=== PATIENT | male | born 1995 | race Caucasian/White ===

== ENCOUNTER 2018-06-12 21:40 | Emergency (ER) | payer MEDICAID ==
[~2018-06-12] VITALS: Ht 172.7 cm; Wt 72.3 kg
[2018-06-12 22:24] VITALS: Ht 172.7 cm; Wt 72.3 kg
[2018-06-13] MEDS ORDERED: SOD CHLORIDE 0.9% 500 ML IV STA (00:08)
[2018-06-13] MEDS ORDERED: HYDROmorphONE 1 MG/ML SYG IV STA (03:36)
--- NOTE | 2018-06-13 04:58 | ERD ---
ER Documentation Chief Complaint Chief Complaint GOT OUT OF BED, PASSED OUT, FELL, HIT RIGHT SIDE OF FACE HPI This is a 21-year-old male got out of bed too quickly said he felt lightheaded fell over and hit his head. He said he passed out after he fell. Complains of eye pain especially around the eyes and some nasal pain. Denies any focal neurologic complaints. Denies any chest pain or palpitations. ROS All systems reviewed and are negative except as per history of present illness. Medications Home Meds No Active Prescriptions or Reported Meds Allergies Allergies: Coded Allergies: No Known Allergy (Unverified , 06/13/18) PMhx/Soc Medical and Surgical Hx: pt denies Medical Hx, pt denies Surgical Hx History of Surgery: No Anesthesia Reaction: No Hx Neurological Disorder: No Hx Respiratory Disorders: No Hx Cardiac Disorders: No Hx Psychiatric Problems: No Hx Miscellaneous Medical Probl: No Hx Alcohol Use: No Hx Substance Use: No Hx Tobacco Use: No Smoking Status: Never smoker Physical Exam Vitals Vital Signs Date Temp Pulse Resp B/P (MAP) Pulse Ox O2 O2 Flow FiO2 Time Delivery Rate 06/13/18 72 18 133/80 98 Room Air 03:34 (97) 06/13/18 16 136/81 98 Room Air 02:05 (99) 06/13/18 72 18 145/77 100 Room Air 00:05 (99) 06/12/18 99.6 75 16 139/83 100 22:24 (101) Physical Exam Const: No acute distress Head: Periorbital ecchymosis along with some ecchymosis near the nasal bridge on the right Eyes: Normal Conjunctiva ENT: Normal External Ears, Nose and Mouth. Neck: Full range of motion. No meningismus. Resp: Clear to auscultation bilaterally Cardio: Regular rate and rhythm, no murmurs Abd: Soft, non tender, non distended. Normal bowel sounds Skin: No petechiae or rashes Back: No midline or flank tenderness Ext: No cyanosis, or edema Neur: Awake and alert Psych: Normal Mood and Affect Result Diagram: 06/13/18 0029 06/13/18 0029 Results 24 hrs Laboratory Tests Test 06/13/18 00:29 White Blood Count 16.4 10^3/ul Red Blood Count 5.73 10^6/ul Hemoglobin 15.9 g/dl Hematocrit 46.7 % Mean Corpuscular Volume 81.5 fl Mean Corpuscular Hemoglobin 27.7 pg Mean Corpuscular Hemoglobin Concent 34.0 g/dl Red Cell Distribution Width 12.9 % Platelet Count 335 10^3/UL Mean Platelet Volume 8.7 fl Immature Granulocytes % 0.600 % Neutrophils % 87.8 % Lymphocytes % 8.1 % Monocytes % 3.2 % Eosinophils % 0.1 % Basophils % 0.2 % Nucleated Red Blood Cells % 0.0 /100WBC Immature Granulocytes # 0.100 10^3/ul Neutrophils # 14.4 10^3/ul Lymphocytes # 1.3 10^3/ul Monocytes # 0.5 10^3/ul Eosinophils # 0.0 10^3/ul Basophils # 0.0 10^3/ul Nucleated Red Blood Cells # 0.0 10^3/ul Sodium Level 142 mmol/L Potassium Level 4.4 mmol/L Chloride Level 100 mmol/L Carbon Dioxide Level 27 mmol/L Anion Gap 15 Blood Urea Nitrogen 13 mg/dl Creatinine 0.83 mg/dl Est Glomerular Filtrat Rate mL/min > 60 mL/min Glucose Level 136 mg/dl Calcium Level 10.3 mg/dl Troponin I < 0.012 ng/ml Current Medications Medications Dose Sig/Corey Start Time Status Last (Trade) Ordered Route PRN Stop Time Admin Dose Reason Admin Sodium 500 ml @ Q1H STAT 06/13/18 DC 06/13/18 Chloride 500 mls/hr IV 00:08 00:25 06/13/18 01:07 1 mg ONCE STAT 06/13/18 DC 06/13/18 Hydromorphone IV 03:36 03:41 HCl 06/13/18 03:37 (Dilaudid) Procedures/MDM EKG: Rate/Rhythm: [Normal Sinus Rhythm] QRS, ST, T-waves: [No changes consistent w/ acute ischemia] Impression: [No evidence of ischemia or arrhythmia] Chest X-ray 1V Interpreted by me: Soft Tissue: No acute abnormalities Bones: No acute abnormalities Mediastinum/Cardiac Silhouette/Lungs: CT of the head and orbits was maxillary fracture with hemorrhage along with inferior medial orbital fractures. Medical decision makin-year-old with multiple orbital injuries, maxillary fracture and hemorrhage, patient will be needed to be transferred for higher level of care. Currently pending placement. No evidence of extraocular muscle entrapment on serial exams here in the emergency department. Critical Care: Time: 35 minutes, independent of any separately billable procedural time Treatments/Evaluations: Close monitoring and treatment of unstable vital signs, cardiorespiratory, and neurologic status, while maintaining tight balance of fluid, respiratory, and cardiac interventions. Departure Diagnosis: Primary Impression: Syncope Syncope type: unspecified Qualified Codes: R55 - Syncope and collapse Additional Impressions: Orbital fracture Encounter type: initial encounter Fracture type: closed Qualified Codes: S02.80XA - Fracture of other specified skull and facial bones, unspecified side, initial encounter for closed fracture Maxillary sinus fracture Encounter type: initial encounter Fracture type: closed Qualified Codes: S02.401A - Maxillary fracture, unspecified side, initial encounter for closed fracture Condition: Serious MILI FRITZ Jun 13, 2018 04:58
[2018-06-13 08:30] VITALS: BP 138/87; PULSE 65; RESP 15
== END 2018-06-13 08:38 | disposition short-term general hospital (02) ==
LOC: E/R 21:40
DX: R55 Syncope and collapse (principal); S02.401A Maxillary fracture, unspecified side, initial encounter for closed fracture; S02.31XA Fracture of orbital floor, right side, initial encounter for closed fracture; W01.198A Fall on same level from slipping, tripping and stumbling with subsequent striking against other object, initial encounter; Y92.9 Unspecified place or not applicable
CPT/HCPCS: 36415; 70450; 70486; 71045; 80048; 84484; 85025; 93005; 96374; J1170; J7040; Z7502